=== PATIENT | male | born 1940 | race Caucasian/White ===

== ENCOUNTER 2018-03-25 06:37 | Day surgery (SDC) | payer MEDICARE ==
[2018-03-22 08:54] VITALS: BMI 21.1
[~2018-03-25 06:37] MED LIST: DEXAMETHASONE SOD PHOSPHATE 10 MG/ML 1 ML VIAL IV ONE; HEPARIN SODIUM,PORCINE 5,000 UNIT/ML 1 ML VIAL SQ ONE; LACTATED RINGERS 1,000 ML IV SCH; MIDAZOLAM 2 MG/2 ML VIAL IV PRN; ONDANSETRON 4 MG/2 ML VIAL IVP ONE; Pre Op ABX Message 1 EACH MISC MISCELLANE ONE; fentaNYL (PF) 50 MCG/ML 2 ML AMP IV PRN
[2018-03-25 07:04] VITALS: TEMP 98
[2018-03-25] MEDS ORDERED: LIDOCAINE 1% 20 ML VIAL (10MG/ML) FOR IV START INTRADERMA ONE (07:04)
[2018-03-25] MEDS ORDERED: LACTATED RINGERS 1,000 ML IV ONE (07:04)
[2018-03-25] MEDS ORDERED: BUPIVACAINE (PF) 0.5% 30 ML VIAL SQ ONE ×2 (07:52→08:14)
[2018-03-25] MEDS ORDERED: KETAMINE 10 MG/ML 20 ML VIAL ONE (07:54)
[2018-03-25] MEDS ORDERED: fentaNYL (PF) 50 MCG/ML 2 ML AMP ONE (07:54)
[2018-03-25] MEDS ORDERED: PROPOFOL 10 MG/ML 20 ML VIAL IV ONE (07:54)
[2018-03-25] MEDS ORDERED: MIDAZOLAM 2 MG/2 ML VIAL ONE (07:54)
[2018-03-25] MEDS ORDERED: ePHEDrine SULFATE/0.9% NACL/PF 50 MG/5 ML SYRINGE IV ONE (07:54)
--- NOTE | 2018-03-25 07:54 | P.GSHP ---
History of Present Illness H&P Date: 03/25/18 Chief Complaint: Right arm basal cell carcinoma This is a 77-year-old male referred from Dr. Kapil Leonard. Patient developed a skin lesion on his right arm. It was biopsied with Dr. Leonard if found have basal cell carcinoma. Patient rents today for wide local excision. Past Medical History Past Medical History: GERD/Reflux, Hypertension, Osteoarthritis (OA) History of Any Multi-Drug Resistant Organisms: None Reported Past Surgical History: Hernia Repair Additional Past Surgical History / Comment(s): CATARACT REMOVED RIGHT EYE , HERNIA REPAIR X 2 Past Anesthesia/Blood Transfusion Reactions: No Reported Reaction Smoking Status: Never smoker - Past Family History Mother Family Medical History: No Reported History Medications and Allergies Home Medications Medication Instructions Recorded Confirmed Type Allopurinol [Zyloprim] 300 mg PO DAILY 03/22/18 03/22/18 History Aspirin 81 mg PO HS 03/22/18 03/22/18 History Atenolol [Tenormin] 12.5 mg PO BID 03/22/18 03/22/18 History Chlorthalidone [Hygroten] 50 mg PO DAILY PRN 03/22/18 03/22/18 History Cholecalciferol [Vitamin D3] 1,000 unit PO DAILY 03/22/18 03/22/18 History LORazepam [Ativan] 0.5 mg PO BID 03/22/18 03/22/18 History Lansoprazole [Prevacid] 30 mg PO DAILY 03/22/18 03/22/18 History Multivitamin [Men's Multi-Vitamin] 1 each PO DAILY 03/22/18 03/22/18 History Simvastatin [Zocor] 20 mg PO HS 03/22/18 03/22/18 History Vitamin E 1,000 unit PO DAILY 03/22/18 03/22/18 History Allergies Allergy/AdvReac Type Severity Reaction Status Date / Time No Known Allergies Allergy Verified 03/22/18 08:16 Surgical - Exam Vital Signs Temp Pulse Resp BP Pulse Ox 98.0 F 45 L 18 163/79 98 03/25/18 07:03 03/25/18 07:03 03/25/18 07:03 03/25/18 07:03 03/25/18 07:03 - General well developed, no distress - Eyes PERRL - ENT normal pinna - Neck no masses - Respiratory normal expansion - Cardiovascular Rhythm: regular - Abdomen Abdomen: soft, non tender - Integumentary Right arm 2 cm basal cell carcinoma. Assessment and Plan Assessment: Right arm basal cell carcinoma. We'll perform wide local excision.
--- NOTE | 2018-03-25 08:05 | P.OP ---
Date of Procedure: 03/25/18 Preoperative Diagnosis: Screening colonoscopy Postoperative Diagnosis: Diverticulosis Procedure(s) Performed: Colonoscopy Anesthesia: MAC Surgeon: Salas Carr Pathology: none sent Condition: stable Disposition: PACU Description of Procedure: Patient's placed on the endoscopy table in the lateral position. He received IV sedation. Digital rectal exam was performed which revealed no abnormalities. The prostate was symmetric without nodules. The flexible colonoscope was then placed patient anus passed throughout the entire colon. The ileocecal valve was visualized. The cecum, ascending and transverse colon appeared normal. In the descending; there was mild diverticulosis. Scope was then brought back the rectum and this appeared normal. Scope was withdrawn for patient.
[2018-03-25 09:46] VITALS: RESP 16
[2018-03-25 10:01] VITALS: BP 144/72; PULSE 49
--- NOTE | 2018-03-25 10:07 | P.OP ---
Date of Procedure: 03/25/18 Preoperative Diagnosis: BASAL CELL CARCINOMA RIGHT ARM Postoperative Diagnosis: BASAL CELL CARCINOMA RIGHT ARM Procedure(s) Performed: WIDE LOCAL EXCISION OF BASAL CELL CARCINOMA RIGHT ARM Anesthesia: MAC Surgeon: Salas Carr Pathology: other (RIGHT ARM BASAL CELL CARCINOMA) Condition: stable Disposition: PACU Description of Procedure: the patient's placed on the operative table in the supine position. He received IV sedation. His right arm was prepped and draped usual sterile fashion. Patient had a 2.5 cm basal cell carcinoma of the right upper arm. The skin was anesthetized 1% local Xylocaine. Elliptical skin incision was made around the lesion. The specimen was then dissected free using the electrocautery. The specimen measured 3 x 5 cm. Hemostasis was achieved with cautery. The skin was closed interrupted 3-0 Monocryl suture. Dermabond was applied. Patient top she will well and sent to recovery in stable condition.
== END 2018-03-25 10:10 | disposition home or self-care (01) ==
LOC: OR 06:37
PROVIDERS: ATTEND Surgery
DX: C44.612 Basal cell carcinoma of skin of right upper limb, including shoulder (principal); L57.0 Actinic keratosis; I10 Essential (primary) hypertension; E78.5 Hyperlipidemia, unspecified; M19.90 Unspecified osteoarthritis, unspecified site; K21.9 Gastro-esophageal reflux disease without esophagitis; F41.9 Anxiety disorder, unspecified; Z79.82 Long term (current) use of aspirin; Z79.899 Other long term (current) drug therapy
CPT/HCPCS: 88305; 11606; J2250; J1644; J1100; J2405; J3010; J2704

== ENCOUNTER 2022-06-01 07:29 | Day surgery (SDC) | payer MEDICARE ==
[2022-05-27 15:53] VITALS: BMI 22.3
[~2022-06-01 07:29] MED LIST changes: +ACETAMINOPHEN TAB 500 MG TAB PO PRN; -DEXAMETHASONE SOD PHOSPHATE 10 MG/ML 1 ML VIAL IV ONE; -HEPARIN SODIUM,PORCINE 5,000 UNIT/ML 1 ML VIAL SQ ONE; +HEPARIN SODIUM,PORCINE/PF 5,000 UNIT/0.5 ML SYRINGE SQ PRN; -LACTATED RINGERS 1,000 ML IV SCH; -MIDAZOLAM 2 MG/2 ML VIAL IV PRN
[2022-06-01 07:57] VITALS: RESP 16; TEMP 97.7
[2022-06-01] MEDS: LACTATED RINGERS 1,000 ML IV SCH ×2 (08:06→08:39)
--- NOTE | 2022-06-01 08:19 | P.GSHP ---
History of Present Illness H&P Date: 06/01/22 Chief Complaint: Basal cell carcinoma chest and left arm This 81-year-old male who has a previous skin biopsy performed by dermatology. Patient's found have basal cell carcinoma of his chest and left arm. He presents today for wide local excision. Past Medical History Past Medical History: Cancer, GERD/Reflux, Hyperlipidemia, Hypertension, Osteoarthritis (OA) Additional Past Medical History / Comment(s): skin cancer History of Any Multi-Drug Resistant Organisms: None Reported Past Surgical History: Hernia Repair Additional Past Surgical History / Comment(s): CATARACT REMOVED RIGHT EYE , HERNIA REPAIR X 2 Past Anesthesia/Blood Transfusion Reactions: No Reported Reaction Smoking Status: Never smoker - Past Family History Mother Family Medical History: No Reported History Medications and Allergies Home Medications Medication Instructions Recorded Confirmed Type Aspirin 81 mg PO HS 03/22/18 06/01/22 History Cholecalciferol [Vitamin D3] 1,000 unit PO DAILY 03/22/18 06/01/22 History LORazepam [Ativan] 0.5 mg PO BID 03/22/18 06/01/22 History Lansoprazole [Prevacid] 30 mg PO QAM 03/22/18 06/01/22 History Multivitamin [Men's Multi-Vitamin] 1 each PO DAILY 03/22/18 06/01/22 History Simvastatin [Zocor] 20 mg PO HS 03/22/18 06/01/22 History Vitamin E (Dl,Tocopheryl Acet) 1,000 unit PO DAILY 03/22/18 06/01/22 History [Vitamin E] atenoloL [Tenormin] 12.5 mg PO BID 03/22/18 06/01/22 History [place]-3/Dha/Epa/Fish Oil [Fish Oil 1 each PO DAILY 05/27/22 06/01/22 History 1,000 mg Softgel] amLODIPine [Norvasc] 10 mg PO QAM 05/27/22 06/01/22 History Allergies Allergy/AdvReac Type Severity Reaction Status Date / Time No Known Allergies Allergy Verified 06/01/22 07:50 Surgical - Exam Vital Signs Temp Pulse Resp BP Pulse Ox 97.7 F 46 L 16 142/72 97 06/01/22 07:56 06/01/22 07:56 06/01/22 07:56 06/01/22 07:56 06/01/22 07:56 - General well developed, well nourished, no distress - Eyes PERRL - ENT normal pinna - Neck no masses - Respiratory normal expansion - Cardiovascular Rhythm: regular - Abdomen Abdomen: soft, non tender - Integumentary 2 cm basal cell carcinoma central chest over sternum. 1 cm basal cell carcinoma on left arm medial surface Assessment and Plan Assessment: Basal cell carcinoma of chest and left arm. We'll perform wide local excision.
[2022-06-01] MEDS ORDERED: MIDAZOLAM 2 MG/2 ML VIAL ONE (08:38)
[2022-06-01] MEDS ORDERED: LIDOCAINE 2% INJ 20 MG/ML (2 ML VIAL) ONE (08:38)
[2022-06-01] MEDS ORDERED: KETAMINE 10 MG/ML 20 ML VIAL ONE (08:38)
[2022-06-01] MEDS ORDERED: PROPOFOL 10 MG/ML 20 ML VIAL IV ONE (08:38)
[2022-06-01] MEDS ORDERED: fentaNYL (PF) 50 MCG/ML 2 ML AMP ONE (08:38)
[2022-06-01] MEDS ORDERED: BUPIVACAIN-EPI 0.25%-1:200,000 30 ML VIAL SQ ONE ×2 (09:01)
--- NOTE | 2022-06-01 09:25 | P.OP ---
Date of Procedure: 06/01/22 Preoperative Diagnosis: Basal cell carcinoma of left arm and chest Postoperative Diagnosis: Same Procedure(s) Performed: Wide local excision of basal cell carcinoma of left upper arm While excision of basal cell carcinoma of chest Anesthesia: EMMA Surgeon: Salas Carr Estimated Blood Loss (ml): 5 Pathology: other (Left upper arm, chest) Condition: stable Disposition: PACU Description of Procedure: The patient's placed on the endoscopy table in the operative table in the supine position. He received IV sedation. His chest and left arm were prepped and draped usual sterile fashion. The area of the biopsy sites had been previously marked in the preoperative hold area. The skin was anesthetized 1% local Xylocaine. The chest boxes performed first. Local skin incision was made around the basal cell carcinoma biopsy site. The specimen measured approximately 3 x 2 cm. Using left cautery the lesion was dissected and then the skin was closed interrupted 3-0 Monocryl suture. Next the left upper arm site was incised with 15 blade, able to the skin was made around the lesion. The lesion measured prostate 3 x 2 cm. The bone was used for hemostasis. The specimen was excised and sent to pathology. The skin was closed interrupted 3-0 Monocryl suture. Dermabond was applied. Patient was sent to recovery in stable condition. Both of the specimens had a suture tag on the superior portion of the biopsy.
[2022-06-01 09:43] VITALS: BP 113/54; PULSE 53
== END 2022-06-01 10:18 | disposition home or self-care (01) ==
LOC: OR 07:29
PROVIDERS: ATTEND Surgery
DX: C44.619 Basal cell carcinoma of skin of left upper limb, including shoulder (principal); C44.519 Basal cell carcinoma of skin of other part of trunk; L57.0 Actinic keratosis; L81.4 Other melanin hyperpigmentation; K21.9 Gastro-esophageal reflux disease without esophagitis; I10 Essential (primary) hypertension; E78.5 Hyperlipidemia, unspecified; M19.90 Unspecified osteoarthritis, unspecified site; Z79.82 Long term (current) use of aspirin; Z79.890 Hormone replacement therapy; Z79.899 Other long term (current) drug therapy; F41.9 Anxiety disorder, unspecified; Z85.828 Personal history of other malignant neoplasm of skin; Z79.891 Long term (current) use of opiate analgesic
CPT/HCPCS: 11603 ×2; 88305; J2250; J2405; J3010; J2704; J1644; J2001

== ENCOUNTER 2023-01-10 15:17 | Emergency (ER) | payer MEDICARE ==
--- NOTE | 2023-01-10 16:51 | ED ---
Weakness HPI - General Chief complaint: Weakness Stated complaint: Weakness Time Seen by Provider: 01/10/23 16:02 Source: patient, family Mode of arrival: ambulatory Limitations: no limitations - History of Present Illness Initial comments: Patient is an 82-year-old male who presents to the emergency department for weakness. States for the past 2-3 weeks patient has been very tired he has been sleeping a lot. Denies any focal weakness. Patient reports a "gas bubble" in his abdomen which he noticed this morning. The bubble is uncomfortable but not painful. He denies fever, chills, nausea, vomiting, diarrhea, melena, hematochezia. Last bowel movement was this morning which patient states was normal. He denies chest pain, shortness of breath, cold-like symptoms. Denies burning with urination but does admit to increased urinary frequency. - Related Data Home Medications Medication Instructions Recorded Confirmed Aspirin 81 mg PO HS 03/22/18 01/10/23 LORazepam [Ativan] 0.5 mg PO BID 03/22/18 01/10/23 Lansoprazole [Prevacid] 30 mg PO DAILY 03/22/18 01/10/23 Simvastatin [Zocor] 20 mg PO HS 03/22/18 01/10/23 Vitamin E (Dl,Tocopheryl Acet) 1,000 unit PO DAILY 03/22/18 01/10/23 [Vitamin E] [place]-3/Dha/Epa/Fish Oil [Fish Oil 1 cap PO DAILY 05/27/22 01/10/23 1,000 mg Softgel] amLODIPine [Norvasc] 10 mg PO DAILY 05/27/22 01/10/23 Ascorbic Acid [Vitamin C] 1,000 mg PO DAILY 01/10/23 01/10/23 Cholecalciferol [Vitamin D3 (25 25 mcg PO DAILY 01/10/23 01/10/23 Mcg = 1000 Iu)] Cyanocobalamin (Vitamin B-12) 1,000 mcg PO DAILY 01/10/23 01/10/23 [Vitamin B-12] Melatonin 5 mg PO HS 01/10/23 01/10/23 Multivit-Min/FA/Lycopen/Lutein 1 tab PO DAILY 01/10/23 01/10/23 [Centrum Silver Men Tablet] Turmeric Root Extract [Turmeric] 1,000 mg PO DAILY 01/10/23 01/10/23 tadalafiL [Cialis] 20 mg PO DAILY PRN 01/10/23 01/10/23 Allergies Allergy/AdvReac Type Severity Reaction Status Date / Time No Known Allergies Allergy Verified 01/10/23 18:52 Review of Systems ROS Statement: Those systems with pertinent positive or pertinent negative responses have been documented in the HPI. ROS Other: All systems not noted in ROS Statement are negative. Past Medical History Past Medical History: Cancer, GERD/Reflux, Hyperlipidemia, Hypertension, Osteoarthritis (OA) Additional Past Medical History / Comment(s): skin cancer History of Any Multi-Drug Resistant Organisms: None Reported Past Surgical History: Hernia Repair Additional Past Surgical History / Comment(s): CATARACT REMOVED RIGHT EYE , HERNIA REPAIR X 2 Past Anesthesia/Blood Transfusion Reactions: No Reported Reaction Past Psychological History: Anxiety Smoking Status: Never smoker Past Alcohol Use History: Occasional Past Drug Use History: None Reported - Past Family History Mother Family Medical History: No Reported History General Exam Limitations: no limitations General appearance: alert, in no apparent distress Head exam: Present: atraumatic, normocephalic, normal inspection Eye exam: Present: normal appearance, PERRL, EOMI, scleral icterus. Absent: conjunctival injection, periorbital swelling Respiratory exam: Present: normal lung sounds bilaterally. Absent: respiratory distress, wheezes, rales, rhonchi, stridor Cardiovascular Exam: Present: regular rate, normal rhythm, normal heart sounds. Absent: systolic murmur, diastolic murmur, rubs, gallop, clicks GI/Abdominal exam: Present: soft, distended (mild ), normal bowel sounds. Absent: tenderness, guarding, rebound, rigid Neurological exam: Present: alert, oriented X3, CN II-XII intact Psychiatric exam: Present: normal affect, normal mood Skin exam: Present: warm, dry, intact. Absent: normal color (Skin is orange in color patient states he applied tanning lotion yesterday), rash Course Vital Signs 01/10/23 01/10/23 01/10/23 15:20 16:55 18:31 Temperature 98.3 F 97.8 F Pulse Rate 111 H 85 89 Respiratory 18 19 Rate Blood Pressure 112/76 142/85 O2 Sat by Pulse 98 97 Oximetry 01/10/23 20:23 Temperature Pulse Rate 85 Respiratory 18 Rate Blood Pressure 117/72 O2 Sat by Pulse 95 Oximetry Medical Decision Making - Medical Decision Making EKG taken at 15:53, interpreted by me Sinus rhythm, nonspecific ST and T wave abnormality, no previous for comparison Ventricular rate 85, FL interval 187, QRS duration 86, QTC 397 Was pt. sent in by a medical professional or institution (, PA, HOSE INSPECTOR AND PATCHER, urgent care, hospital, or skilled nursing...) When possible be specific @ -No Did you speak to anyone other than the patient for history (EMS, parent, family, police, friend...)? What history was obtained from this source @ - helped provide history Did you review nursing and triage notes (agree or disagree)? Why? @ -I reviewed and agree with nursing and triage notes Were old charts reviewed (outside hosp., previous admission, EMS record, old EKG, old radiological studies, urgent care reports/EKG's, skilled nursing records)? Report findings @ -No old charts were reviewed Differential Diagnosis (chest pain, altered mental status, abdominal pain women, abdominal pain men, vaginal bleeding, weakness, fever, dyspnea, syncope, headache, dizziness, GI bleed, back pain, seizure, CVA, palpatations, mental health)? @ -Differential Abdominal Pain Men: Appendicitis, cholecystitis, diverticulosis, ischemic bowel, pancreatitis, hepatitis, UTI, gastroenteritis, AAA, incarcerated hernia, bowel obstruction, constipation, inflammatory bowel, hepatitis, peptic ulcer disease, splenic infarction, perforated viscus, testicular torsion, this is not meant to be an all-inclusive list EKG interpreted by me (3pts min.). @ -As above X-rays interpreted by me (1pt min.). @ -None done CT interpreted by me (1pt min.). @ -Yes, CT of the abdomen and pelvis with contrast shows an 8 mm stone in the common bile duct with focal duodenitis Cane I'll take a look at with thereted by me (1pt. min.). @ -No. Ultrasound report showing common bile duct dilation concerning for choledocholithiasis What testing was considered but not performed or refused? (CT, X-rays, U/S, labs)? Why? @ -[None] Whatmedswere considered but not given or refused? Why? @ -[None] Did ou dscuss the management of the patient with other professionals (professionals i.e. , PA, HOSE INSPECTOR AND PATCHER, lab, RT, psych nurse, social and political studies professor, assembler dc field yoke, teacher, tactical deception plans officer, adult protective caseworker)? Give summary @ -[No] Was smkig cessation discussed for >3mins.? @ -[No] Was crtial care preformed (if so, how long)? @ -[No] Were ter social determinants of health that impacted care today? How? (Homelessness, low income, unemployed, alcoholism, drug addiction, transportation, low edu. Level, literacy, decrease access to med. care, longterm, rehab)? @ -[No] Was threde-escalation of care discussed even if they declined (Discuss DNR or withdrawal of care, Hospice)? DNR status @ -[No] What c-mrbidities impacted this encounter? (DM, HTN, Smoking, COPD, CAD, Cancer, CVA, ARF, Chemo, Hep., AIDS, mental health diagnosis, sleep apnea, morbid obe sity)? @ -[None] Was atiet admitted / discharged? Hospital course, mention meds given and route, prescriptions, significant lab abnormalities, going to OR and other pertinent info. @ -Patient presenting for weakness. He also complains of a gas bubble in the stomach. There is mild abdominal distention without tenderness. No fever, no vomiting. Patient does have orange/yellow skin color. States he recently used tanning lotion but also has scleral icterus. He denies history of gallbladder and liver disease. Laboratory studies obtained. There is significant leukocytosis at 36.9 with left shift. Lactic is elevated at 2.3. Total bilirubin very high at 9.4, alk phos high at 383, ALT high at 150, AST high at 99. Abdominal ultrasound obtained showing dilation of the common bile duct with cholelithiasis concerning for choledocholithiasis. There is gallbladder wall thickening no evidence of pericholecystic fluid CT verifies an 8 mm stone in the common bile duct along with focal duodenitis likely secondary to choledocholithiasis. Patient given fluid bolus, Zosyn. Results discussed with patient and . Unfortunately we do not have GI services for MRCP. Discussed case with ED attending Dr. Coe and GI attending Dr. Warner who accept transfer. Patient transferred in stable condition. Undiagnoed new problem with uncertain prognosis? @ -[No] Drug Terpy requiring intensive monitoring for toxicity (Heparin, Nitro, Insulin, Cardizem)? @ -[No] Were ay rocedures done? @ -[No] Diagnosis/symptom? @ choledocholithiasis Acute, or Chronic, or Acute on Chronic? @ -acute Uncomplicated (without systemic symptoms) or Complicated (systemic symptoms)? @ -uncomplicated Side effects of treatment? @ -[No] Exacerbation, Progression, or Severe Exacerbation? @ -[No] Poses a threat to life or bodily function? How? (Chest pain, [place], AL, pneumonia, PE, COPD, DKA, ARF, appy, cholecystitis, CVA, Diverticulitis, Homicidal, Suicidal, threat to staff... and all critical care pts) @ -yes Dr. Castillo is my attending - Lab Data Result diagrams: 01/10/23 16:30 01/10/23 16:30 Lab Results 01/10/23 01/10/23 01/10/23 Range/Units 16:30 16:30 16:30 WBC 36.9 H (3.8-10.6) k/uL RBC 4.01 L (4.30-5.90) m/uL Hgb 13.2 (13.0-17.5) gm/dL Hct 38.5 L (39.0-53.0) % MCV 96.0 (80.0-100.0) fL MCH 33.0 (25.0-35.0) pg MCHC 34.4 (31.0-37.0) g/dL RDW 13.2 (11.5-15.5) % Plt Count 368 (150-450) k/uL MPV 8.3 Neutrophils % (Manual) 93 % Band Neuts % (Manual) 4 % Lymphocytes % (Manual) 1 % Monocytes % (Manual) 2 % Neutrophils # (Manual) 35.70 H (1.3-7.7) k/uL Lymphocytes # (Manual) 0.37 L (1.0-4.8) k/uL Monocytes # (Manual) 0.74 (0-1.0) k/uL Nucleated RBCs 0 (0-0) /100 WBC Manual Slide Review Performed RBC Morphology Normal PT (9.0-12.0) sec INR (<1.2) APTT (22.0-30.0) sec Sodium 132 L (137-145) mmol/L Potassium 4.0 (3.5-5.1) mmol/L Chloride 96 L (98-107) mmol/L Carbon Dioxide 22 (22-30) mmol/L Anion Gap 14 mmol/L BUN 17 (9-20) mg/dL Creatinine 0.64 L (0.66-1.25) mg/dL Est GFR (CKD-EPI)AfAm >90 (>60 ml/min/1.73 sqM) Est GFR (CKD-EPI)NonAf >90 (>60 ml/min/1.73 sqM) Glucose 124 H (74-99) mg/dL Lactic Ac Sepsis Rflx Plasma Lactic Acid Otis 2.3 H* (0.7-2.0) mmol/L Calcium 9.1 (8.4-10.2) mg/dL Total Bilirubin 9.8 H (0.2-1.3) mg/dL Conjugated Bilirubin (0.0-0.3) mg/dL Unconjugated Bilirubin (0.0-1.1) mg/dL Delta Bilirubin (0.0-0.2) mg/dL AST 99 H (17-59) U/L ALT 150 H (4-49) U/L Alkaline Phosphatase 383 H (38-126) U/L Troponin I (0.000-0.034) ng/mL Total Protein 7.4 (6.3-8.2) g/dL Albumin 3.8 (3.5-5.0) g/dL Cortisol 34 ug/dL Urine Color Urine Appearance (Clear) Urine pH (5.0-8.0) Ur Specific Institute (1.001-1.035) Urine Protein (Negative) Urine Glucose (UA) (Negative) Urine Ketones (Negative) Urine Blood (Negative) Urine Nitrite (Negative) Urine Bilirubin (Negative) Urine Urobilinogen (<2.0) mg/dL Ur Leukocyte Esterase (Negative) 01/10/23 01/10/23 01/10/23 Range/Units 16:30 16:30 16:30 WBC (3.8-10.6) k/uL RBC (4.30-5.90) m/uL Hgb (13.0-17.5) gm/dL Hct (39.0-53.0) % MCV (80.0-100.0) fL MCH (25.0-35.0) pg MCHC (31.0-37.0) g/dL RDW (11.5-15.5) % Plt Count (150-450) k/uL MPV Neutrophils % (Manual) % Band Neuts % (Manual) % Lymphocytes % (Manual) % Monocytes % (Manual) % Neutrophils # (Manual) (1.3-7.7) k/uL Lymphocytes # (Manual) (1.0-4.8) k/uL Monocytes # (Manual) (0-1.0) k/uL Nucleated RBCs (0-0) /100 WBC Manual Slide Review RBC Morphology PT 10.8 (9.0-12.0) sec INR 1.0 (<1.2) APTT 21.8 L (22.0-30.0) sec Sodium (137-145) mmol/L Potassium (3.5-5.1) mmol/L Chloride (98-107) mmol/L Carbon Dioxide (22-30) mmol/L Anion Gap mmol/L BUN (9-20) mg/dL Creatinine (0.66-1.25) mg/dL Est GFR (CKD-EPI)AfAm (>60 ml/min/1.73 sqM) Est GFR (CKD-EPI)NonAf (>60 ml/min/1.73 sqM) Glucose (74-99) mg/dL Lactic Ac Sepsis Rflx Plasma Lactic Acid Otis (0.7-2.0) mmol/L Calcium (8.4-10.2) mg/dL Total Bilirubin 9.4 H (0.2-1.3) mg/dL Conjugated Bilirubin 5.0 H (0.0-0.3) mg/dL Unconjugated Bilirubin 2.2 H (0.0-1.1) mg/dL Delta Bilirubin 2.2 H (0.0-0.2) mg/dL AST (17-59) U/L ALT (4-49) U/L Alkaline Phosphatase (38-126) U/L Troponin I <0.012 (0.000-0.034) ng/mL Total Protein (6.3-8.2) g/dL Albumin (3.5-5.0) g/dL Cortisol ug/dL Urine Color Urine Appearance (Clear) Urine pH (5.0-8.0) Ur Specific Institute (1.001-1.035) Urine Protein (Negative) Urine Glucose (UA) (Negative) Urine Ketones (Negative) Urine Blood (Negative) Urine Nitrite (Negative) Urine Bilirubin (Negative) Urine Urobilinogen (<2.0) mg/dL Ur Leukocyte Esterase (Negative) 01/10/23 01/10/23 Range/Units 17:40 18:45 WBC (3.8-10.6) k/uL RBC (4.30-5.90) m/uL Hgb (13.0-17.5) gm/dL Hct (39.0-53.0) % MCV (80.0-100.0) fL MCH (25.0-35.0) pg MCHC (31.0-37.0) g/dL RDW (11.5-15.5) % Plt Count (150-450) k/uL MPV Neutrophils % (Manual) % Band Neuts % (Manual) % Lymphocytes % (Manual) % Monocytes % (Manual) % Neutrophils # (Manual) (1.3-7.7) k/uL Lymphocytes # (Manual) (1.0-4.8) k/uL Monocytes # (Manual) (0-1.0) k/uL Nucleated RBCs (0-0) /100 WBC Manual Slide Review RBC Morphology PT (9.0-12.0) sec INR (<1.2) APTT (22.0-30.0) sec Sodium (137-145) mmol/L Potassium (3.5-5.1) mmol/L Chloride (98-107) mmol/L Carbon Dioxide (22-30) mmol/L Anion Gap mmol/L BUN (9-20) mg/dL Creatinine (0.66-1.25) mg/dL Est GFR (CKD-EPI)AfAm (>60 ml/min/1.73 sqM) Est GFR (CKD-EPI)NonAf (>60 ml/min/1.73 sqM) Glucose (74-99) mg/dL Lactic Ac Sepsis Rflx Y Plasma Lactic Acid [place] (0.7-2.0) mmol/L Calcium (8.4-10.2) mg/dL Total Bilirubin (0.2-1.3) mg/dL Conjugated Bilirubin (0.0-0.3) mg/dL Unconjugated Bilirubin (0.0-1.1) mg/dL Delta Bilirubin (0.0-0.2) mg/dL AST (17-59) U/L ALT (4-49) U/L Alkaline Phosphatase (38-126) U/L Troponin I (0.000-0.034) ng/mL Total Protein (6.3-8.2) g/dL Albumin (3.5-5.0) g/dL Cortisol ug/dL Urine Color Yellow Urine Appearance Clear (Clear) Urine pH 7.0 (5.0-8.0) Ur Specific Institute 1.018 (1.001-1.035) Urine Protein Negative (Negative) Urine Glucose (UA) Negative (Negative) Urine Ketones Negative (Negative) Urine Blood Negative (Negative) Urine Nitrite Negative (Negative) Urine Bilirubin Negative (Negative) Urine Urobilinogen <2.0 (<2.0) mg/dL Ur Leukocyte Esterase Negative (Negative) Disposition Clinical Impression: Choledocholithiasis Disposition: OTHER INSTITUTION NOT DEFINED Condition: Stable Referrals: Kapil Villareal MD [Primary Care Provider] - 1-2 days - Out of Hospital Transfer - Req. Specs Out of Hospital Transfer - Requested Specifics: Other Emergency Center ([facility])
[2023-01-10 17:13] LABS: HCT 38.5 % (39.0-53.0); HGB 13.2 gm/dL (13.0-17.5); MCHC 34.4 g/dL (31.0-37.0); Mean Platelet Volume 8.3; Platelet Count 368 k/uL (150-450); RBC 4.01 m/uL (4.30-5.90); RDW 13.2 % (11.5-15.5)
--- NOTE | 2023-01-10 17:16 | XR ---
EXAMINATION TYPE: XR chest 2V DATE OF EXAM: 01/10/2023 5:10 PM COMPARISON: None TECHNIQUE: XR chest 2V . CLINICAL INDICATION:Male, 82 years old with history of Weakness; FINDINGS: Lungs/Pleura: There is no evidence of pleural effusion, focal consolidation, or pneumothorax. Pulmonary vascularity: Unremarkable. Heart/mediastinum: Cardiomediastinal silhouette is unremarkable. Musculoskeletal: Degenerative changes of the shoulder joints. Degenerative changes of the thoracic sp ine. IMPRESSION: No acute cardiopulmonary disease/process.
[2023-01-10 17:25] LABS: WBC 36.9 k/uL (3.8-10.6)
[2023-01-10] MEDS ORDERED: SODIUM CHLORIDE 0.9% 1,000 ML IV STA (17:42)
[2023-01-10 17:49] LABS: Band Neutrophils % 4 %; Lymphocytes # (M) 0.37 k/uL (1.0-4.8); Monocytes # (M) 0.74 k/uL (0-1.0); Neutrophils % (M) 93 %; Nucleated Red Blood Cells 0 /100 WBC (0-0); Total Cells Counted 101
[2023-01-10 17:51] LABS: ALT 150 U/L (4-49); AST 99 U/L (17-59); African American GFR (CKD) >90 (>60 ml/min/1.73 sqM); Albumin 3.8 g/dL (3.5-5.0); Alkaline Phosphatase 383 U/L (38-126); Anion Gap 14 mmol/L; Blood Urea Nitrogen 17 mg/dL (9-20); Calcium 9.1 mg/dL (8.4-10.2); Carbon Dioxide 22 mmol/L (22-30); Chloride 96 mmol/L (98-107); Glucose 124 mg/dL (74-99); Non-African American GFR(CKD) >90 (>60 ml/min/1.73 sqM); RBC Morphology Normal; Sodium 132 mmol/L (137-145); Total Bilirubin 9.8 mg/dL (0.2-1.3); Total Protein 7.4 g/dL (6.3-8.2)
[2023-01-10 18:06] LABS: Partial Thromboplastin Time 21.8 sec (22.0-30.0); Prothrombin Time 10.8 sec (9.0-12.0)
[2023-01-10 18:32] VITALS: TEMP 97.8
--- NOTE | 2023-01-10 18:57 | US ---
EXAMINATION TYPE: US abdomen limited DATE OF EXAM: 01/10/2023 COMPARISON: NONE CLINICAL INDICATION: Male, 82 years old with history of jaundice; jaundice exam limitations due to arsh wel gas. TECHNIQUE: Multiple sonographic images of the right upper quadrant are obtained. FINDINGS: EXAM MEASUREMENTS: Liver Length: 14.7 cm Gallbladder Wall: 0.4 cm CBD: 1.0 cm Right Kidney: 8.9 x 4.6 x 4.1 cm SILK FOLDER NOTES: Pancreas: Duct visualized tail obscured by bowel gas. Liver: Increased attenuation consistent with hepatic steatosis. Normal size and noncirrhotic morphol ogy. Gallbladder: Thickened gallbladder wall measuring up to 0.4 cm in width. Multiple shadowing gallston es noted. No appreciable pericholecystic fluid. Evidence for sonographic Benitez's sign: No CBD: Dilated distally measuring up to 1 cm in width. 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 No evidence for hydronephrosis. IMPRESSION: 1. Dilated common bile duct, which in the setting of cholelithiasis raises concern for choledocholith iasis. Consider further evaluation with MRCP/ERCP. 2. Cholelithiasis with gallbladder wall thickening, given the lack of sonographic Benitez's sign, find ings are equivocal for acute cholecystitis. Further workup with nuclear medicine hepatobiliary scan m ay be of benefit. 3. Hepatic steatosis.
[2023-01-10 19:01] LABS: Bilirubin, Delta 2.2 mg/dL (0.0-0.2); Bilirubin,Unconjugated 2.2 mg/dL (0.0-1.1); Total Bilirubin 9.4 mg/dL (0.2-1.3)
[2023-01-10 19:14] LABS: Appearance,Urine Clear (Clear); Bilirubin,Urine Negative (Negative); Blood,Urine Negative (Negative); Color,Urine Yellow; Glucose,Urine (UA) Negative (Negative); Ketones,Urine Negative (Negative); Leukocyte Esterase,Urine Negative (Negative); Nitrite,Urine Negative (Negative); Protein,Urine Negative (Negative); Specific Gravity,Urine 1.018 (1.001-1.035); Urobilinogen,Urine <2.0 mg/dL (<2.0)
[2023-01-10] MEDS ORDERED: PIPERACILLIN-TAZOBACTAM 3.375 GM in SODIUM CHLORIDE 0.9% 100 ML IVPB STA (19:14)
[2023-01-10 20:27] VITALS: BP 117/72; PULSE 85; RESP 18
--- NOTE | 2023-01-10 20:31 | CT ---
EXAMINATION TYPE: CT abdomen pelvis w con CT DLP: 689.4 mGycm, Automated exposure control for dose reduction was used. DATE OF EXAM: 01/10/2023 6:56 PM COMPARISON: Abdominal ultrasound 01/10/2023 CLINICAL INDICATION:Male, 82 years old with history of weakness, abd pain, elevated liver enzymes; El evated liver enzymes, generalized abdominal pain x 1 week. TECHNIQUE: Axial CT of the abdomen and pelvis. Sagittal and coronal reformats were created on a [employer] workstation. Contrast used:90 cc mL of Isovue 370 with IV Contrast, Oral contrast used: without Oral Contrast FINDINGS: LOWER CHEST: Posterior dependent subsegmental atelectasis is noted. ABDOMEN LIVER: Unremarkable GALLBLADDER AND BILE DUCTS: Contracted gallbladder with wall thickening and multiple gallstones. Ther e is dilatation of the common bile duct up to 10 mm in width. Within the distal segment of the common bile duct proximal to the ampulla there is a filling defect measuring approximately 8 mm (series 202 , image 39 and series 201, image 37). Associated mesenteric fat stranding. No significant intrahepati c biliary ductal dilatation. PANCREAS: Normal in appearance. Mild peripancreatic fat stranding at the pancreatic head, likely reac tive to choledocholithiasis. Pancreatic duct is normal in caliber. SPLEEN: Unremarkable. ADRENAL GLANDS: Unremarkable. KIDNEYS AND URETERS: Right nonobstructing 9 mm lower pole calculus. Bilateral mild pelviectasis with fusiform dilatation of the ureters to the level of the ureterovesicular junctions. There is no discre te obstructing lesion identified. Focal stricturing is suggested at the ureteropelvic junctions (seri es 202, image 45 and 49). Non-obstructing 5 mm calculus in the left lower pole. Bilateral subcentimet er cortical hypodensities, statistically renal cysts. PELVIS BLADDER: Left and posterior midline bladder diverticula (series 201, image 71 and 67). No bladder wal l thickening or bladder calculi. REPRODUCTIVE: Central prostatic calcifications. ABDOMEN & PELVIS STOMACH AND BOWEL: Stomach is normal in appearance. Duodenal wall thickening involving the distal sec ond and proximal third portions of the duodenum, likely reactive. Distal duodenum and small bowel are otherwise unremarkable.. Scattered diverticula are noted throughout the colon. 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 No evidence of bowel obstruction. PERITONEUM: No evidence of pneumoperitoneum or free fluid. VASCULATURE: Moderate atherosclerotic calcifications are present throughout the abdominal aorta and i ts branches. No evidence of aortic aneurysm. MUSCULOSKELETAL: No acute osseous abnormalities. Moderate disc degeneration changes are present throu ghout the thoracolumbar spine. LYMPH NODES: No gross evidence for lymphadenopathy. SOFT TISSUE/ABDOMINAL WALL: Fat-containing bilateral inguinal hernias. Findings communicated to TANNA Parmar on 01/10/2023 8:[address] Sharyn Villarreal. IMPRESSION: 1. Choledocholithiasis, an approximately 8 mm filling defect noted in the distal common bile duct. 2. Cholelithiasis with gallbladder wall thickening. 3. Bilateral pelviectasis and hydroureter without evidence for obstructing lesion. Possible stricture noted at the bilateral ureteropelvic junctions, further evaluation with CT urogram is recommended on a non-emergent basis. 4. Bilateral non-obstructing renal calculi. 5. Focal duodenitis, likely reactive to #1. 6. Additional incidental findings as detailed above.
== END 2023-01-10 21:04 | disposition other institution (70) ==
LOC: EC 15:17
DX: K80.50 Calculus of bile duct without cholangitis or cholecystitis without obstruction (principal); I10 Essential (primary) hypertension; E78.5 Hyperlipidemia, unspecified; K21.9 Gastro-esophageal reflux disease without esophagitis; F41.9 Anxiety disorder, unspecified; Z79.82 Long term (current) use of aspirin; Z79.899 Other long term (current) drug therapy
CPT/HCPCS: 36415; 93005; 80053; 82533; 82248; 83605; 84484; 85025; 85610; 85730; 81003; 71046; 76705; 74177; 99285; 96374; 96361; J2543; Q9967; 87077; 87186